=== PATIENT | female | born 1995 | race Two or more races ===

== ENCOUNTER → 2020-01-18 | Outpatient (CLI) | payer SELFPAY ==
[2020-01-18 10:31] LABS: HEMATOCRIT 33.9 % (36.0-47.0); HEMOGLOBIN 11.4 g/dL (12.0-15.5); MEAN CORPUSCULAR HEMOGLOBIN 27.8 pg (27.0-33.4); MEAN CORPUSCULAR HGB CONC 33.8 g/dL (32.0-36.0); MEAN CORPUSCULAR VOLUME 82 fl (80-97); PLATELET COUNT 353 10^3/uL (150-450); RED BLOOD COUNT 4.12 10^6/uL (3.72-5.28); RED CELL DISTRIBUTION WIDTH 14.5 % (11.5-14.0); WHITE BLOOD COUNT 8.6 10^3/uL (4.0-10.5)
[2020-01-18 10:52] LABS: ALBUMIN 3.4 g/dL (3.5-5.0); ALKALINE PHOSPHATASE 50 U/L (38-126); ASPARTATE AMINO TRANSFERASE 12 U/L (14-36); BILIRUBIN,TOTAL 0.2 mg/dL (0.2-1.3); BLOOD UREA NITROGEN 9 mg/dL (7-20); C-REACTIVE PROTEIN 10.1 mg/L (<10.0); CALCIUM 8.8 mg/dL (8.4-10.2); GLUCOSE 86 mg/dL (75-110); TOTAL PROTEIN 6.6 g/dL (6.3-8.2)
[2020-01-18 10:55] LABS: CARBON DIOXIDE 29 mmol/L (22-30); CHLORIDE 104 mmol/L (98-107)
[2020-01-18 11:07] LABS: ANION GAP 4 (5-19)
== END ==
LOC: OD 09:39
PROVIDERS: ATTEND Internal Medicine Gastroenterology
DX: K51.011 Ulcerative (chronic) pancolitis with rectal bleeding (principal)
CPT/HCPCS: 36415; 80048; 80076; 82542; 85027; 86140